=== PATIENT | female | born 1995 | race Two or more races ===

== ENCOUNTER 2020-09-06 15:20 | Outpatient (REF) | payer OTHER, SELFPAY | END 2020-09-06 15:21 | disposition home or self-care (01) | LOC: HO.LAB 15:20 | PROVIDERS: Visit Provider Internal Medicine | DX: Z20.828 Contact with and (suspected) exposure to other viral communicable diseases (principal) | CPT/HCPCS: C9803; U0003 ==

== ENCOUNTER 2021-06-18 16:04 | Emergency (ER) | payer OTHER, SELFPAY ==
--- NOTE | 2021-06-18 | ECG_ITS ---
Test Reason : CHEST PAIN Blood Pressure : / mmHG Vent. Rate : 087 BPM Atrial Rate : 087 BPM P-R Int : 120 ms QRS Dur : 086 ms QT Int : 362 ms P-R-T Axes : 026 009 033 degrees QTc Int : 435 ms Normal sinus rhythm Normal ECG When compared with ECG of 04-JAN-2020 20:48, No significant change was found Referred By: Generic ED Physician Electronically Signed By:LUIS ARMANDO HO
--- NOTE | ~2021-06-18 | XR_ITS ---
EXAMINATION: XR CHEST CLINICAL INFORMATION: Right-sided chest pain COMPARISON: None TECHNIQUE: 2 views of the chest were obtained. FINDINGS: No significant abnormality is noted involving the heart, lungs, mediastinum, bony thorax or soft tissues. XR/XR chest 2V IMPRESSION: Unremarkable examination.
[2021-06-18 16:59] VITALS: BP 111/43; PULSE 96; RESP 16; TEMP 36.6; O2SAT 98; BMI 27.3
--- NOTE | 2021-06-18 17:00 | ED_ITS ---
HPI - Chest Pain General Chief Complaint: Chest Pain Stated Complaint: chest pain x3days Time Seen by Provider: 06/18/21 16:59 Related Data Allergies Allergy/AdvReac Type Severity Reaction Status Date / Time No Known Allergies Allergy Unverified 06/22/20 19:02 [No Known Allergies*] [facility] Past Medical History Medical History (Updated 06/19/21 @ 18:58 by DIANA Lewis) Asthma Social History Social History Advance Directives: No Advance Directives Information Provided: No Physical Exam Vital Signs: Vital Signs: Last Vital Signs Temp 98 F 06/18/21 16:59 Pulse 96 06/18/21 16:59 Resp 16 06/18/21 16:59 BP 111/43 L 06/18/21 16:59 Pulse Ox 98 06/18/21 16:59 Body Mass Index 27.3 Course Course Course Narrative: 17pm - 25-year-old female presenting to the ED with complaints of left-sided chest pain for the past 2-3 days that is intermittent in nature that she reports is sharp. Does not radiate. Is currently on the Nexplanon control. Denies drug usage. On exam patient is alert oriented x3. Not in any acute distress. Vital signs are stable within normal limits. CV RRR. Lungs CTA. Patient does have chest wall reproducible tenderness. Labs, chest x-ray an EKG ordered at this time. Patient will be sent back to the waiting room for further evaluation treatment into the main ED. Discharge Plan Discharge Clinical Impression: Chest pain Patient Disposition: Elopement Interventions: LWBS Worksheet Last Done: 06/18/21 20:51 Discharge Date/Time: 06/18/21 20:32
== END 2021-06-18 20:32 | disposition left against medical advice (07) ==
PROVIDERS: Emergency Provider Emergency Medicine
DX: R07.9 Chest pain, unspecified (principal)
CPT/HCPCS: 71046; 93005; 99283

== ENCOUNTER 2021-06-20 08:50 | Emergency (ER) | payer OTHER, SELFPAY ==
--- NOTE | ~2021-06-20 | CT_ITS ---
EXAMINATION: CT ANGIOGRAM OF THE CHEST WITH AND WITHOUT CONTRAST (CT PULMONARY ANGIOGRAM FOR PE) CLINICAL INFORMATION: Reason for Exam L sided pain elevated ddimer COMPARISON: None TECHNIQUE: Prior to contrast administration, noncontrast localization images were obtained. Subsequently, multidetector volumetric imaging was performed from the thoracic inlet to below the diaphragms following the administration of 80 mL Omnipaque 350 intravenous contrast. No contrast reaction reported Sagittal, coronal, and MIP oblique sagittal reformatted images were obtained on the CT workstation, uploaded to PACS, and reviewed. This CT examination was performed using dose optimization techniques as appropriate, variously including the following: *Automated exposure control *Adjustment of mA and/or kV according to patient size (this includes techniques or standardized protocols for targeted exams where dose is matched to indication/reason for exam; i.e. extremities or head) *Use of iterative reconstruction technique Total exam dose-length product 100 mGy-cm FINDINGS: QUALITY OF STUDY/CONTRAST BOLUS: Suboptimal. PULMONARY ARTERIES: The contrast optimization in pulmonary artery is suboptimal. Due to contrast leak at the IV connection. Cannot exclude PE. THORACIC AORTA: No aneurysm or dissection. LUNG: No focal consolidation, nodules or masses. PLEURA: No pleural effusion or pneumothorax. MEDIASTINUM: Normal heart size. No pericardial effusion. No hilar or mediastinal lymphadenopathy. No evidence of septal bowing or right heart strain. CHEST WALL/AXILLA: No axillary or internal mammary lymphadenopathy. OSSEOUS STRUCTURES: No acute or suspicious osseous abnormality. UPPER ABDOMEN: Visualized liver, spleen, pancreas and bilateral adrenal glands are unremarkable. No reflux of contrast into the hepatic veins to suggest elevated right heart pressures. CT/CT angio chest PE protocol IMPRESSION: Suboptimal contrast opacifying pulmonary artery. Cannot exclude PE. Recommend repeat exam or VQ study. Rest of the CT chest is unremarkable VTE: indeterminate. Results were called by phone to Dr. Daisy Perez in the ER of an inadequate PE study at 12:22 PM
--- NOTE | ~2021-06-20 | NM_ITS ---
EXAMINATION: NM LUNG IMAGE PERFUSION CLINICAL INFORMATION: Elevated D-dimer. Evaluate for PE. Suboptimal CTA chest. COMPARISON: CTA chest 06/20/2021 and chest x-ray 06/18/2021. TECHNIQUE: Following intravenous administration of 4 mCi of 99m technetium MAA in the right antecubital vein, imaging of both lungs were obtained in multiple projections. FINDINGS: On perfusion exam, there is non-segmental defects in left lower lobe, suspicious. The chest x-ray is completely normal. No abnormality seen on CTA chest in the lung parenchyma. There are non-segmental vertical linear defects, likely prominent fissures. Patient has a history of asthma. NM/NM pul perfusion IMPRESSION: Small subsegmental defects left lower lobe; findings are suspicious for intermediate probability for PE. There are non-segmental defects along the major fissure of both lungs. These findings could be secondary to a known history of asthma; however, there is no hyperinflation seen on the chest x-ray from 06/18/2021 or the CTA chest from 06/20/2021.
--- NOTE | ~2021-06-20 | CT_ITS ---
EXAMINATION: CT ANGIOGRAM OF THE CHEST WITH AND WITHOUT CONTRAST (CT PULMONARY ANGIOGRAM FOR PE) CLINICAL INFORMATION: Reason for Exam please re scan for PE left-sided pain. Elevated d-dimer. COMPARISON: Previous chest x-ray 06/18/2021 and CTA of the chest and nuclear medicine perfusion exam from earlier the same day TECHNIQUE: Prior to contrast administration, noncontrast localization images were obtained. Subsequently, multidetector volumetric imaging was performed from the thoracic inlet to below the diaphragms following the administration of 61 mL Omnipaque 350 intravenous contrast. No contrast reaction reported Sagittal, coronal, and MIP oblique sagittal reformatted images were obtained on the CT workstation, uploaded to PACS, and reviewed. This CT examination was performed using dose optimization techniques as appropriate, variously including the following: *Automated exposure control *Adjustment of mA and/or kV according to patient size (this includes techniques or standardized protocols for targeted exams where dose is matched to indication/reason for exam; i.e. extremities or head) *Use of iterative reconstruction technique Total exam dose-length product 242 mGy-cm FINDINGS: QUALITY OF STUDY/CONTRAST BOLUS: Satisfactory. PULMONARY ARTERIES: No central or segmental pulmonary emboli. THORACIC AORTA: No aneurysm or dissection. LUNG: No focal consolidation, nodules or masses. PLEURA: No pleural effusion or pneumothorax. MEDIASTINUM: Normal heart size. No pericardial effusion. No hilar or mediastinal lymphadenopathy. No evidence of septal bowing or right heart strain. CHEST WALL/AXILLA: No axillary or internal mammary lymphadenopathy. OSSEOUS STRUCTURES: No acute or suspicious osseous abnormality. UPPER ABDOMEN: Unremarkable. No reflux of contrast into the hepatic veins to suggest elevated right heart pressures. CT/CT angio chest PE protocol IMPRESSION: Normal exam. No evidence of pulmonary embolism. VTE: negative
[2021-06-20 09:18] VITALS: BP 133/60; PULSE 85; RESP 14; TEMP 36.4; O2SAT 99; BMI 27.3
--- NOTE | 2021-06-20 10:06 | ED.CHESTPAIN ---
HPI - Chest Pain General Chief Complaint: Chest Pain Stated Complaint: chest pain when swallowing Time Seen by Provider: 06/20/21 09:58 Source: patient Mode of arrival: ambulatory Limitations: no limitations History of Present Illness MD complaint: chest pain Onset (ago): day(s) (4) Timing of current episode: episodic Prior episodes: Yes Onset: during rest, during exertion and after eating Pain location: left chest Pain radiation: none Severity: moderate Quality: sharp Relieving factors: nothing Exacerbating factors: exertion, inspiration and eating Associated symptoms: dyspnea Treatment prior to arrival: none Related Data Allergies Allergy/AdvReac Type Severity Reaction Status Date / Time No Known Allergies Allergy Unverified 06/22/20 19:02 [No Known Allergies*] Review of Systems Review of Systems: Constitutional : No Weight loss, No Fever, No Chills ENT/Mouth : No sore throat, No Rhinorrhea Eyes: No Eye Pain, No Swelling Cardiovascular : pos Chest Pain, pos SOB, no Dyspnea on Exertion, No Orthopnea, No Edema, No Palpitations Respiratory : No Cough, No Sputum Gastrointestinal : no Nausea, No Vomiting, No Diarrhea, No abdominal Pain, No Hematochezia, No Melena Genitourinary : No Dysuria, No Urinary Frequency Musculoskeletal : No joint pain, No Myalgias, No Joint Swelling Skin : No Skin Lesions, No rash Neuro : No Weakness, No Numbness, No Dizziness, No Headache Psych : No Anxiety/Panic, No Depression Heme/Lymph: No Bruising, No Lymphadenopathy Endocrine : No Polyuria, No Polydipsia All other systems reviewed and are negative [facility] Past Medical History Medical History Asthma Social History Social History (Updated 06/20/21 @ 10:23 by Daisy Perez DO) Patient Tobacco Use Status: Never used Tobacco Use of substances other than those prescribed or required for medical reasons: No Advance Directives: No Advance Directives Information Provided: No Patient : No Physical Exam Vital Signs: Vital Signs: Last Vital Signs Temp 97.5 F 06/20/21 09:18 Pulse 85 06/20/21 09:18 Resp 14 06/20/21 09:18 BP 133/60 06/20/21 09:18 Pulse Ox 99 06/20/21 09:18 Body Mass Index 27.3 Appearance: Alert. Oriented X3. No acute distress. Eyes: Pupils equal, round and reactive to light. ENT: Pharynx normal. Neck: Normal inspection. Neck supple. CVS: Normal heart rate and rhythm. Pulses normal. Respiratory: No respiratory distress. Breath sounds normal. Abdomen: Soft and non-tender. Skin: Skin warm and dry. Normal skin color. Normal skin turgor. Extremities: No lower extremity edema. No calf ttp Neuro: Oriented X 3. No motor deficit. No sensory deficit. Course Course Course Narrative: ddimer elevated CTA ordered VQ scan possible PE - intermediate this seems highly unlikely given her VS I did discuss options with the patient in regards to starting blood thinners or obtaining CTA to definitively dx and the patient wants to proceed with CTA before she start on on thinners which is reasonable as we would be subjecting her to OAC for 6 months and that is not without risk negative for PE on CTA which seems consistent with her clinical presentation MDM - Chest Pain MDM Narrative Medical decision making narrative: 25 yo female with no sig PMH here with L sided pleuritic chest pain worse with exerton x 4 days. She has no ACS risk factors, was vaccinated over 2 months ago, does have nexplanon - at this time EKG, CXR normal 2 days ago with symptoms, troponin x 1, ddimer dispo per results and findings. Lab Data Result diagrams: 06/20/21 10:34 06/20/21 10:34 Labs: Lab Results 06/20/21 06/20/21 06/20/21 Range/Units 10:34 10:34 10:34 WBC 8.6 (4.8-10.8) X10*3/uL RBC 4.93 (4.20-5.50) X10*6/uL Hgb 14.5 (12.0-16.0) g/dl Hct 42.5 (37-47) % MCV 86.2 (80-98) fL MCH 29.4 (27.0-33.0) pg MCHC 34.1 (31.0-35.0) g/dl RDW 13.2 (11.0-16.0) % Plt Count 245 (160-400) X10*3/uL MPV 9.7 (9.4-12.3) fL Immature Gran % (Auto) 0.2 (0.0-0.4) % Neut % (Auto) 67.1 (45-73) % Lymph % (Auto) 17.7 L (20-40) % Crockett % (Auto) 6.7 (2-11) % Eos % (Auto) 7.4 H (0-4) % Baso % (Auto) 0.9 (0-2) % Lymph # (Auto) 1.5 (1.2-4.9) X10*3/uL Crockett # (Auto) 0.6 (0.1-1.2) X10*3/uL Eos # (Auto) 0.6 H (0.0-0.4) X10*3/uL Baso # (Auto) 0.1 (0.0-0.2) X10*3/uL Abs Immat Gran (auto) 0.02 (0.00-0.03) X10*3/uL Absolute Neuts (auto) 5.8 (2.0-8.3) X10*3/uL Absolute Nucleated RBC 0.000 (0.0-0.012) X10*3/uL Nucleated RBC % (auto) 0.0 (0.0-0.2) /100WBC PT 11.9 (9.9-13.0) SEC INR 1.0 (0.9-1.1) APTT 32.3 (24.1-38.0) SEC D-Dimer 346 NG/ML Sodium 138 (135-145) mmol/L Potassium 4.1 (3.3-5.1) mmol/L Chloride 106 (96-108) mmol/L Carbon Dioxide 26 (22-29) mmol/L Anion Gap 10 L (12-20) BUN 10 (9-16) mg/dL Creatinine 0.79 (0.5-1.4) mg/dL Estim Creat Clear Calc 95.3 Estimated GFR > 60 Random Glucose 84 (60-115) mg/dL Calcium 9.4 (8.4-10.2) mg/dL Total Bilirubin 1.5 H (0.0-1.0) mg/dL Direct Bilirubin 0.5 (0.0-0.5) mg/dL AST 16 (5-31) U/L ALT 14 (0-31) U/L Alkaline Phosphatase 82 (39-117) U/L Troponin I High Sens (<3.5-17.0) ng/L Total Protein 7.3 (6.5-8.0) g/dL Albumin 4.2 (3.5-5.0) g/dL Lipase 30 (8-78) U/L Urine Test (NEGATIVE) COVID-19 ([facility]) (Negative) COVID-19 Clin Com 06/20/21 06/20/21 06/20/21 Range/Units 10:34 10:50 11:13 WBC (4.8-10.8) X10*3/uL RBC (4.20-5.50) X10*6/uL Hgb (12.0-16.0) g/dl Hct (37-47) % MCV (80-98) fL MCH (27.0-33.0) pg MCHC (31.0-35.0) g/dl RDW (11.0-16.0) % Plt Count (160-400) X10*3/uL MPV (9.4-12.3) fL Immature Gran % (Auto) (0.0-0.4) % Neut % (Auto) (45-73) % Lymph % (Auto) (20-40) % Crockett % (Auto) (2-11) % Eos % (Auto) (0-4) % Baso % (Auto) (0-2) % Lymph # (Auto) (1.2-4.9) X10*3/uL Crockett # (Auto) (0.1-1.2) X10*3/uL Eos # (Auto) (0.0-0.4) X10*3/uL Baso # (Auto) (0.0-0.2) X10*3/uL Abs Immat Gran (auto) (0.00-0.03) X10*3/uL Absolute Neuts (auto) (2.0-8.3) X10*3/uL Absolute Nucleated RBC (0.0-0.012) X10*3/uL Nucleated RBC % (auto) (0.0-0.2) /100WBC PT (9.9-13.0) SEC INR (0.9-1.1) APTT (24.1-38.0) SEC D-Dimer NG/ML Sodium (135-145) mmol/L Potassium (3.3-5.1) mmol/L Chloride (96-108) mmol/L Carbon Dioxide (22-29) mmol/L Anion Gap (12-20) BUN (9-16) mg/dL Creatinine (0.5-1.4) mg/dL Estim Creat Clear Calc Estimated GFR Random Glucose (60-115) mg/dL Calcium (8.4-10.2) mg/dL Total Bilirubin (0.0-1.0) mg/dL Direct Bilirubin (0.0-0.5) mg/dL AST (5-31) U/L ALT (0-31) U/L Alkaline Phosphatase (39-117) U/L Troponin I High Sens < 3.5 (<3.5-17.0) ng/L Total Protein (6.5-8.0) g/dL Albumin (3.5-5.0) g/dL Lipase (8-78) U/L Urine Test NEGATIVE (NEGATIVE) COVID-19 ([facility]) Negative (Negative) COVID-19 Clin Com See Note ECG Data ECG #1: Attestation: I personally reviewed and interpreted this ECG as follows: ECG interpretation date: 06/20/21 ECG interpretation time: 10:27 Interpretation: Rate: 71 Rhythm: NSR Galva: left Normal P waves. Normal JAE. Normal QRS complex. ST T wave : no MERI qTC: normal prior studies: no acute ischemia The study has been interpreted contemporaneously by me. . Discharge Plan Discharge Clinical Impression: Chest pain Qualifiers: Chest pain type: pleurodynia Qualified Code(s): R07.81 - Pleurodynia Patient Disposition: Home, Self-Care Instructions: Chest Pain (ED) Additional Instructions: return to ED for any worsening symptoms or concerns Referrals: Physician,Unknown [Primary Care Provider] - 2 days (if not better) Stand Alone Forms: Work/School Release
--- NOTE | 2021-06-20 10:19 | ECG_ITS ---
Test Reason : CHEST PAIN Blood Pressure : / mmHG Vent. Rate : 071 BPM Atrial Rate : 071 BPM P-R Int : 132 ms QRS Dur : 086 ms QT Int : 400 ms P-R-T Axes : 028 006 024 degrees QTc Int : 434 ms Normal sinus rhythm Low voltage QRS Borderline ECG When compared with ECG of 18-JUN-2021 16:25, No significant change was found Referred By: Daisy Perez Electronically Signed By:LUIS ARMANDO HO
[2021-06-20 10:41] LABS: MANUAL DIFF FLAG NO
[2021-06-20 10:43] LABS: Basophils Absolute Auto 0.1 X10*3/uL (0.0-0.2); Basophils Percent Auto 0.9 % (0-2); Eosinophils Absolute Auto 0.6 X10*3/uL (0.0-0.4); Eosinophils Percent Auto 7.4 % (0-4); Hematocrit 42.5 % (37-47); Hemoglobin 14.5 g/dl (12.0-16.0); Imm Gran Abs Auto 0.02 X10*3/uL (0.00-0.03); Imm Gran Pct Auto 0.2 % (0.0-0.4); Lymphocytes Absolute Auto 1.5 X10*3/uL (1.2-4.9); Lymphocytes Percent Auto 17.7 % (20-40); Mean Corpuscular HGB Conc 34.1 g/dl (31.0-35.0); Mean Corpuscular Hemoglobin 29.4 pg (27.0-33.0); Mean Corpuscular Volume 86.2 fL (80-98); Mean Platelet Volume 9.7 fL (9.4-12.3); Monocytes Absolute Auto 0.6 X10*3/uL (0.1-1.2); Monocytes Percent Auto 6.7 % (2-11); Neutrophils Absolute Auto 5.8 X10*3/uL (2.0-8.3); Neutrophils Percent Auto 67.1 % (45-73); Platelet Count 245 X10*3/uL (160-400); Red Blood Count 4.93 X10*6/uL (4.20-5.50); Red Cell Distribution Width 13.2 % (11.0-16.0); White Blood Count 8.6 X10*3/uL (4.8-10.8)
[2021-06-20 10:54] LABS: D Dimer 346 NG/ML
[2021-06-20 10:58] LABS: Alanine Aminotransferase 14 U/L (0-31); Albumin Level 4.2 g/dL (3.5-5.0); Alkaline Phosphatase 82 U/L (39-117); Anion Gap 10 (12-20); Aspartate Amino Transferase 16 U/L (5-31); Bilirubin Direct 0.5 mg/dL (0.0-0.5); Bilirubin Total 1.5 mg/dL (0.0-1.0); Blood Urea Nitrogen 10 mg/dL (9-16); Calcium 9.4 mg/dL (8.4-10.2); Carbon Dioxide 26 mmol/L (22-29); Chloride 106 mmol/L (96-108); Creatinine Clr Calc Pharmacy 95.3; Estimated Glomerular Filt Rate > 60; Glucose Random 84 mg/dL (60-115); Lipase 30 U/L (8-78); Potassium 4.1 mmol/L (3.3-5.1); Sodium 138 mmol/L (135-145); Total Protein 7.3 g/dL (6.5-8.0)
[2021-06-20 11:03] LABS: Troponin-I High Sensitivity < 3.5 ng/L (<3.5-17.0)
[2021-06-20 11:19] LABS: COVID-19 Test Negative (Negative); IDNOW Serial# 9DD0AD1C
[2021-06-20 11:28] LABS: UPreg QC Valid YES; Urine Pregnancy NEGATIVE (NEGATIVE)
[2021-06-20] MEDS: iohexoL 350 MG/ML 100 ML INFUS..BTL IV ×2 (12:08→15:51)
[2021-06-20 15:34] LABS: Prothrombin Time 11.9 SEC (9.9-13.0)
[2021-06-20 15:37] LABS: Partial Thromboplastin Time 32.3 SEC (24.1-38.0)
[2021-06-20] MEDS: 0.9 % Sodium Chloride 1,000 ML 999 ML IVCONT (15:38)
== END 2021-06-20 17:09 | disposition home or self-care (01) ==
PROVIDERS: Emergency Provider Emergency Medicine
DX: R07.81 Pleurodynia (principal); R07.9 Chest pain, unspecified; R06.02 Shortness of breath; Z20.822 Contact with and (suspected) exposure to COVID-19
CPT/HCPCS: 36415; 71275; 78580; 80048; 80076; 81025; 83690; 84484; 85025; 85379; 85610; 85730; 87635; 93005; 96360; 99283; 99285; A9540; Q9967

== ENCOUNTER 2023-04-05 01:53 | Emergency (ER) | payer OTHER, SELFPAY ==
--- NOTE | ~2023-04-05 | XR_ITS ---
EXAMINATION: XR CHEST CLINICAL INFORMATION: Asthma, EtOH, rule out aspiration COMPARISON: 06/20/2021 TECHNIQUE: Frontal view of the chest was obtained. FINDINGS: Lung volumes are symmetric. No focal consolidation is seen. No evidence of pneumothorax, pleural effusion, or pulmonary edema. The cardiomediastinal contour is unremarkable. No acute osseous findings are seen. XR/XR chest 1V IMPRESSION: No acute cardiopulmonary findings.
[2023-04-05 01:58] VITALS: BP 129/69; PULSE 123; RESP 26; O2SAT 99; BMI 25.9
--- NOTE | 2023-04-05 02:09 | ED.ASTHMA ---
HPI - Asthma General Chief Complaint: Asthma Stated Complaint: ASTHMA ATTACK Time Seen by Provider: 04/05/23 01:59 Source: EMS Mode of arrival: EMS Limitations: other (Intoxicated, shortness of breath) History of Present Illness HPI Narrative: Patient comes to the emergency room via ambulance from home. Patient was found in the bathtub of her house intoxicated, vomiting and having diarrhea and also having an asthma exacerbation. According to the ambulance, patient's oxygen saturation was 85% on room air, patient was given O2 prior to arrival. Oxygen saturation improved to the low 90s. Patient admits that she has been heavily drinking today. Related Data Previous Rx's Medication Instructions Recorded prednisone 50 mg tablet 50 mg PO DAILY #4 tabs 04/05/23 Allergies Allergy/AdvReac Type Severity Reaction Status Date / Time No Known Allergies Allergy Verified 04/05/23 02:04 [No Known Allergies*] Review of Systems Review of Systems: Constitutional : No Weight loss, No Fever, No Chills, No Night Sweats, No Fatigue, No Malaise ENT/Mouth : No Hearing loss, No Ear Pain, No Nasal Congestion, No Sinus Pain, No Hoarseness, No sore throat, No Rhinorrhea, No Swallowing Difficulty Eyes: No Eye Pain, No Swelling, No Redness, No Foreign Body, No Discharge, No Vision Changes Cardiovascular : No Chest Pain, No SOB, No Dyspnea on Exertion, No Orthopnea, No Edema, No Palpitations Respiratory : No Cough, No Sputum, No Wheezing, No Smoke Exposure, No Dyspnea Gastrointestinal : No Nausea, No Vomiting, No Diarrhea, No Constipation, No abdominal Pain, No Hematochezia, No Melena Genitourinary : no irregular bleeding, No Dysuria, No Urinary Frequency, No Hematuria, No Urinary Incontinence, No Urgency, No Flank Pain, No Urinary Flow Changes, No Hesitancy Musculoskeletal : No joint pain, No Myalgias, No Joint Swelling Skin : No Skin Lesions, No rash Neuro : No Weakness, No Numbness, No Paresthesias, No Loss of Consciousness, No Dizziness, No Headache Psych : No Anxiety/Panic, No Depression, No SI/HI/AH/VH, No Social Issues, Heme/Lymph: No Bruising, No Bleeding,No Lymphadenopathy Endocrine : No Polyuria, No Polydipsia, No Temperature Intolerance [facility] Past Medical History Medical History Asthma Social History Social History (Updated 06/20/21 @ 10:23 by Breanne Perez DO) Alcohol intake: current Alcohol intake frequency: a few times a week Alcohol type: hard liquor Patient Tobacco Use Status: Never used Tobacco Smoked in Last 30 Days: No Use of substances other than those prescribed or required for medical reasons: Yes Substance Use Type: Marijuana Substance Use Frequency: Occasionally Advance Directives: No Advance Directives Information Provided: Yes Patient : No Physical Exam Vital Signs: Vital Signs: Last Vital Signs Temp 97.5 F 04/05/23 04:30 Pulse 140 H 04/05/23 04:30 Resp 23 H 04/05/23 04:30 BP 107/46 L 04/05/23 04:30 Pulse Ox 99 04/05/23 04:30 O2 Del Method Aerosol Mask 04/05/23 04:30 O2 Flow Rate 5 04/05/23 04:30 Oxygen Flow Rate 10 04/05/23 01:58 BMI result Body Mass Index 25.9 Const: Other: Appearance: Alert. Oriented X3. No acute distress. Eyes: Pupils equal, round and reactive to light. ENT: Pharynx normal. Neck: Normal inspection. Neck supple. No lymph nodes noted. No crepitus CVS: Normal heart rate and rhythm. Pulses normal. Normal S1 and S2 Respiratory: Patient having difficulty breathing, on a non-rebreather saturating in the low 90s. Patient wheezing bilaterally, decreased air movement. Abdomen: Soft and nontender. No rigidity. No distention. Skin: Skin warm and dry. Normal skin color. Normal skin turgor. Extremities: No lower extremity edema. No Lacerations. No Rash Neuro: Oriented X 3. No motor deficit. No sensory deficit. Moving all extremities. No slurred speech. CN 2 through 12 grossly intact Psych: calm, cooperative, Course Course Course Narrative: -patient getting Solu-Medrol, magnesium, albuterol neb treatment, IV Zofran -patient is waking up, converse aiding, coherent. Medications Administered Discontinued Medications Generic Name Dose Route Start Last Admin Trade Name Freq PRN Reason Stop Dose Admin Albuterol Sulfate 10 mg 04/05/23 01:57 04/05/23 02:15 Albuterol Sulfate (0.083%) 2.5 Mg/3 Ml Vial.Neb INHALE 04/05/23 01:58 10 mg ONCE ONE Administration Albuterol Sulfate 10 mg 04/05/23 01:57 04/05/23 02:15 Albuterol Sulfate (0.083%) 2.5 Mg/3 Ml Vial.Neb INHALE 04/05/23 01:58 Not Given ONCE ONE Albuterol Sulfate 10 mg 04/05/23 03:32 04/05/23 03:35 Albuterol Sulfate (0.083%) 2.5 Mg/3 Ml Vial.Neb INHALE 04/05/23 03:33 10 mg ONCE ONE Administration Magnesium Sulfate 2 gm in 50 mls @ 150 mls/hr 04/05/23 01:57 04/05/23 02:40 Magnesium Sulfate/H2o IV 04/05/23 02:16 Infused ONCE ONE Infusion Methylprednisolone Sodium Succinate 125 mg 04/05/23 01:57 04/05/23 02:10 Methylprednisolone Sod Succ 125 Mg/2 Ml Vial IVPUSH 04/05/23 01:58 125 mg ONCE ONE Administration Ondansetron HCl 4 mg 04/05/23 02:10 04/05/23 02:13 Ondansetron Hcl 4 Mg/2 Ml Vial IVPUSH 04/05/23 02:11 4 mg ONCE ONE Administration Medical Decision Making Medical Decision Making MDM Narrative: -patient's oxygen saturation 85%, having an asthma exacerbation, admission being considered -of patient's labs pending -patient currently getting nebulization treatments. -patient is awake, alert and oriented x3, ambulatory without assistance. Clinically sober -patient was ambulated around the emergency room, oxygen saturation 97% the whole time. -on auscultation, lungs are clear, good air movement -patient states she has all of her medications at home, only needs prednisone. Differential Diagnosis Differential Diagnoses: The differential diagnosis associated with the presentation includes (Alcohol intoxication, asthma exacerbation, aspiration pneumonia) Admission/Observation Consideration of admission/observation: Escalation of care including admission/observation considered Lab Data [facility] Lab Attestation statement: I reviewed the patient's lab results. 04/05/23 02:17 04/05/23 02:17 Labs: Lab Results 04/05/23 04/05/23 04/05/23 Range/Units 02:17 02:17 02:17 WBC 12.4 H (4.8-10.8) X10*3/uL RBC 4.62 (4.20-5.50) X10*6/uL Hgb 13.1 (12.0-16.0) g/dl Hct 38.9 (37.0-47.0) % MCV 84.2 (80.0-98.0) fL MCH 28.4 (27.0-33.0) pg MCHC 33.7 (31.0-35.0) g/dl RDW 12.6 (11.0-16.0) % Plt Count 290 (160-400) X10*3/uL MPV 9.5 (9.4-12.3) fL Immature Gran % (Auto) 0.8 H (0.0-0.4) % Neut % (Auto) 60.5 (45-73) % Lymph % (Auto) 23.8 (20-40) % Donley % (Auto) 6.9 (2-11) % Eos % (Auto) 7.0 H (0-4) % Baso % (Auto) 1.0 (0-2) % Lymph # (Auto) 3.0 (1.2-4.9) X10*3/uL Donley # (Auto) 0.9 (0.1-1.2) X10*3/uL Eos # (Auto) 0.9 H (0.0-0.4) X10*3/uL Baso # (Auto) 0.1 (0.0-0.2) X10*3/uL Abs Immat Gran (auto) 0.10 H (0.00-0.03) X10*3/uL Absolute Neuts (auto) 7.5 (2.0-8.3) x10*3/uL Absolute Nucleated RBC 0.000 (0.0-0.012) X10*3/uL Nucleated RBC % (auto) 0.0 (0.0-0.2) /100WBC Sodium 143 (135-145) mmol/L Potassium 3.8 (3.3-5.1) mmol/L Chloride 109 H (96-108) mmol/L Carbon Dioxide 25 (22-29) mmol/L Anion Gap 13 (12-20) BUN 7 L (9-16) mg/dL Creatinine 0.81 (0.5-1.4) mg/dL Estim Creat Clear Calc 107.4 Estimated GFR > 60 Random Glucose 118 H (60-115) mg/dL Calcium 8.6 D (8.4-10.2) mg/dL Total Bilirubin 0.3 (0.0-1.0) mg/dL AST 16 (5-31) U/L ALT 17 (0-31) U/L Alkaline Phosphatase 66 (39-117) U/L Total Protein 7.3 (6.5-8.0) g/dL Albumin 3.8 (3.5-5.0) g/dL Ethyl Alcohol 134 mg/dL Critical Care Time Critical Care Time Critical Care Time: Yes Total Critical Care Time: 60 Attestation: I have personally provided critical care time. Time includes review of lab data, radiology results, discussion with consultants, and monitoring for potential decompensation. Intervention performed as documented. Discharge Plan Discharge Clinical Impression: Asthma with acute exacerbation, Alcohol intoxication Patient Disposition: Home, Self-Care Instructions: Asthma (ED), Alcohol Intoxication (ED) Additional Instructions: Please follow-up with your primary care physician tomorrow. If you have any worsening or new symptoms, please return to the emergency room or call 911 Prescriptions: New prednisone 50 mg tablet 50 mg PO DAILY Qty: 4 0RF
[2023-04-05] MEDS: methylPREDNISolone Sod Succ 125 MG/2 ML VIAL IVPUSH (02:10)
[2023-04-05] MEDS: Magnesium Sulfate/H2O 2 GM/50 ML PIGGYBACK IV (02:10)
[2023-04-05] MEDS: ondansetron HCL 4 MG/2 ML VIAL IVPUSH (02:13)
[2023-04-05 02:15] VITALS: PULSE 126; RESP 26; O2SAT 99
[2023-04-05] MEDS: Albuterol Sulfate (0.083%) 2.5 MG/3 ML VIAL.NEB 10 MG INHALE ×2 (02:15→03:35)
[2023-04-05 02:25] VITALS: BP 129/69; PULSE 123; RESP 24; TEMP 36.6; O2SAT 100
--- NOTE | 2023-04-05 03:16 | MHC.EDTECH ---
Late entry at 0200 this tech changed pt over to hospital attire, placed patient on brand manager,vitals taken and labs obtained. Had to cut pts shirt off and patient had us throw away her pants due to being solid.Patient had a moderate amount of liq. stool patient was cleaned and made comfortable. Patient has no belongings at this time. RN aware
[2023-04-05 03:38] VITALS: PULSE 119; RESP 16; O2SAT 95
[2023-04-05 04:30] VITALS: BP 107/46; PULSE 140; RESP 23; TEMP 36.4; O2SAT 99
--- NOTE | 2023-04-05 05:13 | MHC.EDTECH ---
Walked patient around the main ED per Doctor. Rm Air before walking 96%. When rounding the ED patient had no complaint of Lightheaded, dizziness, or SOB. O2 stayed at 97%, she had no complaints. Stated I feel good . Brought her back to her rm. Still no Complaints. RN, aware
== END 2023-04-05 05:55 | disposition home or self-care (01) ==
PROVIDERS: Emergency Provider Emergency Medicine
DX: J45.901 Unspecified asthma with (acute) exacerbation (principal); F10.920 Alcohol use, unspecified with intoxication, uncomplicated; Y90.6 Blood alcohol level of 120-199 mg/100 ml; F12.90 Cannabis use, unspecified, uncomplicated
CPT/HCPCS: 36415; 71045; 80053; 80307; 85025; 94640; 96365; 96375; 99284; 99285; J2405; J2930; J3475

== ENCOUNTER 2023-08-12 10:43 | Emergency (ER) | payer OTHER, SELFPAY ==
[2023-08-12 10:54] VITALS: BP 106/64; PULSE 75; RESP 16; TEMP 36.6; O2SAT 98; BMI 29.3
--- NOTE | 2023-08-12 13:20 | ED.GENADULT ---
HPI - General Adult General Chief complaint: General Medical Stated complaint: Needle stick-work inj Time Seen by Provider: 08/12/23 10:59 Source: patient and RN notes reviewed Mode of arrival: ambulatory Limitations: no limitations History of Present Illness HPI narrative: This is a 28-year-old female presenting to the emergency department after being stuck by a dirty needle at work today. Patient states that a needle fell out of the sharps container and accidentally punctured her right 2nd finger. She immediately will rinse the area. 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 She is unsure when her last tetanus was. No other complaints or concerns at this time. MD complaint: Needlestick Onset (ago): hour(s) Radiation: non-radiation Quality: aching Pain Consistency: constant Relieving factors: none Exacerbating factors: none Associated symptoms: denies other symptoms Treatments prior to arrival: none Related Data Previous Rx's Medication Instructions Recorded prednisone 50 mg tablet 50 mg PO DAILY #4 tabs 04/05/23 Allergies Allergy/AdvReac Type Severity Reaction Status Date / Time No Known Allergies Allergy Verified 08/12/23 10:54 [No Known Allergies*] Review of Systems Review of Systems: Yes all other systems are reviewed and are negative PMFSH Past Medical History Attestation statement: The following information was validated with the patient. Medical History Asthma Social History Social History Alcohol intake: current Alcohol intake frequency: a few times a week Alcohol type: hard liquor Patient Tobacco Use Status: Never used Tobacco Substance Use Type: Marijuana Advance Directives: No Physical Exam ED Vital Signs: Vital Signs - 24 hr 08/12/23 10:54 Temperature 98 F Pulse Rate 75 Respiratory Rate 16 Blood Pressure 106/64 Pulse Oximetry 98 BMI result Body Mass Index 29.3 Const Other: General: Awake, alert, and oriented X3. No acute distress. HEENT: Normal inspection CVS: Normal heart rate and rhythm. Pulses normal. Respiratory: No respiratory distress Skin: Warm, dry, no rashes noted to exposed skin. Normal skin color. Normal skin turgor. Extremities: Right second digit with small puncture noted over the PIP. No surrounding erythema or edema noted. Full ROM of the digit without difficulty. Neuro: Oriented X 3. No motor deficit. No sensory deficit. Medical Decision Making Medical Decision Making MDM Narrative: 28-year-old female presenting to the emergency department after needle stick. Needle was dirty however patient reports that she is aware of past medical history of both patient's, states no HIV or hepatitis. She is unsure when her tetanus was. Tiny puncture wound noted at the PIP, full range of motion of the 2nd digit, no surrounding erythema or edema. Discussed wrist versus benefits of starting antiviral treatment, patient declines wanting treatment at this time. Will draw basic labs, HIV and hepatitis panel. Advised to keep wound clean and dry and to return with any new or worsening symptoms. Differential Diagnosis Differential Diagnoses: The differential diagnosis associated with the presentation includes Puncture, cellulitis, bodily fluid exposure, abrasion, laceration Discharge Plan Discharge Clinical Impression: Accidental needlestick injury with exposure to body fluid Patient Disposition: Home, Self-Care Instructions: Needle Stick Injuries (ED) Additional Instructions: You were seen in the ER after being stuck by a needle. You had labs performed in the ER. We will call you with any abnormal results. You declined treatment with antivirals today. Keep area clean and dry. We gave you your tetanus shot today. I am giving you a referral to an infectious disease specialist if you would like to follow-up with them. Call to make an appointment if that is the case. If any new or worsening symptoms occur, including redness, swelling, please return for re-evaluation. Prescriptions: No Action prednisone 50 mg tablet 50 mg PO DAILY Qty: 4 0RF Referrals: [facility] [place] Infectious Disease [Provider Group]
[2023-08-12] MEDS: Diphth,Pertus(ACell),Tet Adult 0.5 ML SYRINGE IM (13:50)
[2023-08-12 13:52] LABS: MANUAL DIFF FLAG NO
[2023-08-12 13:54] LABS: Basophils Absolute Auto 0.1 X10*3/uL (0.0-0.2); Basophils Percent Auto 1.4 % (0-2); Eosinophils Absolute Auto 1.3 X10*3/uL (0.0-0.4); Eosinophils Percent Auto 15.4 % (0-4); Hematocrit 39.9 % (37.0-47.0); Hemoglobin 13.2 g/dl (12.0-16.0); Imm Gran Abs Auto 0.02 X10*3/uL (0.00-0.03); Imm Gran Pct Auto 0.2 % (0.0-0.4); Lymphocytes Percent Auto 22.6 % (20-40); Mean Corpuscular HGB Conc 33.1 g/dl (31.0-35.0); Mean Corpuscular Hemoglobin 28.1 pg (27.0-33.0); Mean Corpuscular Volume 84.9 fL (80.0-98.0); Mean Platelet Volume 9.7 fL (9.4-12.3); Monocytes Absolute Auto 0.6 X10*3/uL (0.1-1.2); Neutrophils Absolute Auto 4.6 x10*3/uL (2.0-8.3); Neutrophils Percent Auto 53.4 % (45-73); Platelet Count 288 X10*3/uL (160-400); Red Cell Distribution Width 12.6 % (11.0-16.0); White Blood Count 8.6 X10*3/uL (4.8-10.8)
[2023-08-12 14:10] LABS: Alanine Aminotransferase 16 U/L (0-31); Albumin Level 3.9 g/dL (3.5-5.0); Alkaline Phosphatase 62 U/L (39-117); Anion Gap 9 (12-20); Aspartate Amino Transferase 13 U/L (5-31); Bilirubin Direct 0.1 mg/dL (0.0-0.5); Bilirubin Total 0.3 mg/dL (0.0-1.0); Blood Urea Nitrogen 10 mg/dL (9-16); Calcium 10.1 mg/dL (8.4-10.2); Carbon Dioxide 27 mmol/L (22-29); Chloride 109 mmol/L (96-108); Estimated Glomerular Filt Rate > 60; Glucose Random 80 mg/dL (60-115); Potassium 4.6 mmol/L (3.3-5.1); Sodium 140 mmol/L (135-145); Total Protein 7.3 g/dL (6.5-8.0)
[2023-08-12 14:36] LABS: HBS Num1 0.31 mIU/mL (0-7.99); HBc Num1 0.61 S/CO (0.00-0.79); HBsAGNum1 0.32 S/CO (0.00-0.99); HIV AB/AG Nonreactive (Nonreactive); HIV Num 1 0.08 S/CO (0.00-0.99); Hepatitis B Core Antibody Nonreactive (Nonreactive); Hepatitis B Surface Antigen Negative (Negative); ~HepC Num1 0.08 S/CO (0.00-0.79); ~Hepatitis B Surface Antibody NONREACTIVE (Nonreactive)
[2023-08-12 14:43] LABS: Hepatitis C Ab Exposure Source NonReactive (Nonreactive)
== END 2023-08-12 13:57 | disposition home or self-care (01) ==
PROVIDERS: Physician Assistant Medical; Emergency Provider Student in an Organized Health Care Education/Training Program; PCP Internal Medicine
DX: Z77.21 Contact with and (suspected) exposure to potentially hazardous body fluids (principal)
CPT/HCPCS: 36415; 80048; 80076; 85025; 86803; 90471; 90715; 99283; 99284

== ENCOUNTER 2024-08-20 16:21 | Emergency (ER) | payer OTHER, SELFPAY ==
[2024-08-20 16:52] VITALS: BP 115/72; PULSE 93; RESP 18; TEMP 36.6; O2SAT 98; BMI 28.1
--- NOTE | 2024-08-20 17:19 | ED.ASTHMA ---
HPI - Asthma General Chief Complaint: Asthma Stated Complaint: Asthmatic symptoms referred by Pcp Time Seen by Provider: 08/20/24 20:30 Source: patient Mode of arrival: ambulatory Limitations: no limitations History of Present Illness ED Provider: geri SILVERMAN Narrative: Patient is 15 weeks with history of asthma had an asthma attack prior to arrival been sick with nasal congestion for last 2 weeks COVID flu was negative complaining of upper abdominal pain after asthma no vaginal bleed or discharge patient took nebulizing treatment prior to arrival feeling much better saturating 98% at room air Related Data Previous Rx's ?Medication ?Instructions ?Recorded prednisone 50 mg tablet 50 mg PO DAILY #4 tabs 04/05/23 prednisone 20 mg tablet 40 mg (2 x 20 mg) PO DAILY #10 tabs 08/20/24 Allergies Allergy/AdvReac Type Severity Reaction Status Date / Time No Known Allergies Allergy Verified 08/20/24 16:54 [No Known Allergies*] Review of Systems Review of Systems: Yes all other systems are reviewed and are negative PMFSH Past Medical History Medical History Asthma Social History Social History Alcohol intake: former Patient Tobacco Use Status: Never used Tobacco Smoked in Last 30 Days: No Use of substances other than those prescribed or required for medical reasons: No Substance Use Type: Marijuana Advance Directives: No Advance Directives Information Provided: No Do you have a plan to hurt others: No Plan Patient : Yes Physical Exam Vital Signs: Vital Signs: Last Vital Signs Temp 97.8 F 08/20/24 20:28 Pulse 83 08/20/24 20:28 Resp 18 08/20/24 20:28 BP 115/62 08/20/24 20:28 Pulse Ox 100 08/20/24 20:28 O2 Del Method Room Air 08/20/24 20:28 BMI result Body Mass Index 28.1 Appearance: Alert. Oriented X3. No acute distress. ENT: Pharynx normal. Oral Mucosa moist Neck: Normal inspection. Neck supple. CVS: Normal heart rate and rhythm. Pulses normal. Respiratory: No respiratory distress. Equal air entry bilateral, no wheezing/rales/rhonchi prolonged expiration abd: Gravid uterus no significant tenderness heart tone 170 beats per good movement Skin: Skin warm and dry. Normal skin color. Normal skin turgor. Extremities: No lower extremity edema. Neuro: Oriented X 3. Course Course Course Narrative: This is an RME performed by Karey Owen CNP: Additional HPI, ROS, PE not included below will be deferred to primary provider. Patient is a 29-year-old female currently 15 weeks reporting concern for asthma exacerbation. Two weeks with cough, congestion, some improvement with albuterol inhaler. Denies fevers, chills, nausea, vomiting, diarrhea, abdominal pain, lower back pain, symptoms. Call PCP advised to come to ED as she is currently . Exam: No CTA, speaking clear full sentences, no hypoxia no tachypnea. Plan: Viral serologies Medical Decision Making Medical Decision Making [facility] Narrative: Patient with asthma at a attack at home relieved after using nebulizing treatment 15 weeks bedside ultrasound done which showed heart rate of 170 beats per minute good movements Lab Data Labs: Lab Results 08/20/24 Range/Units 17:18 Influenza Type A (PCR) NEGATIVE (Negative) Influenza Type B (PCR) NEGATIVE (Negative) RSV RNA Qual (PCR) NEGATIVE (Negative) SARS-CoV-2 RNA (RT-PCR) NEGATIVE (Negative) Discharge Plan Discharge Clinical Impression: Asthma with acute exacerbation Patient Disposition: Home, Self-Care Instructions: Asthma (ED) Additional Instructions: Continue to use your inhaler and nebulizing treatment every 4-6 hours as needed Prednisone as prescribed Follow the PCP if any concerns Prescriptions: New prednisone 20 mg tablet 40 mg PO DAILY Qty: 10 0RF No Action prednisone 50 mg tablet 50 mg PO DAILY Qty: 4 0RF Print Language: Divehi
[2024-08-20 18:23] LABS: Influenza A PCR NEGATIVE (Negative); Influenza B PCR NEGATIVE (Negative); Resp Syncy Virus RNA Qual PCR NEGATIVE (Negative); SARS COV2 PCR INHOUSE NEGATIVE (Negative)
[2024-08-20 20:28] VITALS: BP 115/62; PULSE 83; RESP 18; TEMP 36.6; O2SAT 100
[2024-08-20] MEDS: predniSONE 20 MG TABLET 40 MG PO (21:30)
[2024-08-20 21:35] VITALS: BP 115/62; PULSE 83; RESP 18; TEMP 36.6; O2SAT 100
== END 2024-08-20 21:36 | disposition home or self-care (01) ==
PROVIDERS: Emergency Provider Internal Medicine; PCP Internal Medicine
DX: J45.901 Unspecified asthma with (acute) exacerbation (principal); R09.81 Nasal congestion; R10.10 Upper abdominal pain, unspecified; Z03.818 Encounter for observation for suspected exposure to other biological agents ruled out
CPT/HCPCS: 0241U; 99283; 99284

== ENCOUNTER 2024-08-31 20:52 | Emergency (ER) | payer OTHER, SELFPAY ==
--- NOTE | 2024-08-31 | ECG_ITS ---
Test Reason : TACHYCARDIA Blood Pressure : / mmHG Vent. Rate : 140 BPM Atrial Rate : 140 BPM P-R Int : 132 ms QRS Dur : 080 ms QT Int : 292 ms P-R-T Axes : 054 010 045 degrees QTc Int : 445 ms Sinus tachycardia Cannot rule out Anterior infarct , age undetermined Abnormal ECG When compared with ECG of 20-JUN-2021 10:22, Vent. rate has increased BY 69 BPM Referred By: Generic ED Physician Electronically Signed By:PRECIOUS AVENDANO
--- NOTE | ~2024-08-31 | XR_ITS ---
EXAMINATION: XR CHEST CLINICAL INFORMATION: SOB COMPARISON: April 05, 2023 TECHNIQUE: Frontal view of the chest was obtained. FINDINGS: No significant abnormality is noted involving the heart, lungs, mediastinum, bony thorax or soft tissues. XR/XR chest 1V IMPRESSION: Unremarkable examination. Electronically signed by: Carlos Miller MD 08/31/2024 11:22 PM [facility] [place]
[2024-08-31 20:53] VITALS: BP 104/71; PULSE 145; RESP 22; TEMP 37; O2SAT 97; BMI 24.4
[2024-08-31 21:13] LABS: Hemoglobin 11.7 g/dl (12.0-16.0); Monocytes Absolute Auto 0.3 X10*3/uL (0.1-1.2); Red Cell Distribution Width 13.1 % (11.0-16.0); SCAN SMEAR FLAG 1
[2024-08-31 21:17] LABS: Basophils Absolute Auto 0.1 X10*3/uL (0.0-0.2); Basophils Percent Auto 0.4 % (0-2); Eosinophils Absolute Auto 0.2 X10*3/uL (0.0-0.4); Eosinophils Percent Auto 0.9 % (0-4); Hematocrit 32.2 % (37.0-47.0); Imm Gran Pct Auto 0.6 % (0.0-0.4); Lymphocytes Absolute Auto 0.6 X10*3/uL (1.2-4.9); Lymphocytes Percent Auto 3.6 % (20-40); MANUAL DIFF FLAG SCAN; Mean Corpuscular HGB Conc 36.3 g/dl (31.0-35.0); Mean Corpuscular Hemoglobin 28.6 pg (27.0-33.0); Mean Corpuscular Volume 78.7 fL (80.0-98.0); Mean Platelet Volume 9.4 fL (9.4-12.3); Monocytes Percent Auto 1.7 % (2-11); Neutrophils Absolute Auto 16.7 x10*3/uL (2.0-8.3); Neutrophils Percent Auto 92.8 % (45-73); Platelet Count 251 X10*3/uL (160-400); Red Blood Count 4.09 X10*6/uL (4.20-5.50)
[2024-08-31 21:25] LABS: Alanine Aminotransferase 17 U/L (0-31); Albumin Level 3.7 g/dL (3.5-5.0); Alkaline Phosphatase 60 U/L (39-117); Anion Gap 10 (12-20); Aspartate Amino Transferase 15 U/L (5-31); Bilirubin Total 0.3 mg/dL (0.0-1.0); Blood Urea Nitrogen 6 mg/dL (9-16); Calcium 8.7 mg/dL (8.4-10.2); Carbon Dioxide 21 mmol/L (22-29); Chloride 106 mmol/L (96-108); Creatinine Clr Calc Pharmacy 113.6; Estimated Glomerular Filt Rate > 60; Glucose Random 178 mg/dL (60-115); Magnesium 1.9 mg/dL (1.6-2.6); Sodium 134 mmol/L (135-145); Total Protein 6.6 g/dL (6.5-8.0)
[2024-08-31 21:38] LABS: SLIDE REVIEW VERIFIED
[2024-08-31 21:48] LABS: Influenza A PCR NEGATIVE (Negative); Influenza B PCR NEGATIVE (Negative); Resp Syncy Virus RNA Qual PCR NEGATIVE (Negative); SARS COV2 PCR INHOUSE NEGATIVE (Negative)
[2024-08-31 22:15] VITALS: BP 113/62; PULSE 121; RESP 16; TEMP 36.4; O2SAT 97
--- NOTE | 2024-08-31 22:36 | ED_ITS ---
HPI - SOB/Dyspnea General Chief Complaint: Dyspnea Stated Complaint: trouble breathing ; 4 months Time Seen by Provider: 08/31/24 22:19 Source: patient Mode of arrival: ambulatory Limitations: no limitations History of Present Illness ED Provider: geri SILVERMAN Narrative: Patient's history of asthma 4 months allergic to dogs apparently giving the bath to the dog started having shortness a breath wheezing to the treatment before coming no feeling much better able to speak full sentences patient is just here last week with similar episode and was given prednisone Related Data Previous Rx's ?Medication ?Instructions ?Recorded prednisone 50 mg tablet 50 mg PO DAILY #4 tabs 04/05/23 prednisone 20 mg tablet 40 mg (2 x 20 mg) PO DAILY #10 tabs 08/20/24 Allergies Allergy/AdvReac Type Severity Reaction Status Date / Time No Known Allergies Allergy Verified 08/31/24 20:56 [No Known Allergies*] Review of Systems 2 Review of Systems: Yes all other systems are reviewed and are negative PMFSH Past Medical History Medical History Asthma Social History Social History Alcohol intake: former Patient Tobacco Use Status: Never used Tobacco Substance Use Type: Marijuana Advance Directives: No Advance Directives Information Provided: No Physical Exam 2 Vital Signs: Vital Signs: Last Vital Signs Temp 97.6 F 08/31/24 22:57 Pulse 121 H 08/31/24 22:57 Resp 16 08/31/24 22:57 BP 113/62 08/31/24 22:57 Pulse Ox 97 08/31/24 22:57 O2 Del Method Room Air 08/31/24 22:57 BMI result Body Mass Index 24.4 Appearance: Alert. Oriented X3. No acute distress. Eyes: No pallor or icterus ENT: Pharynx normal. Oral Mucosa moist Neck: Normal inspection. Neck supple. CVS: Normal heart rate and rhythm. Pulses normal. Respiratory: No respiratory distress. Equal air entry bilateral, prolonged expiration Abdomen: Soft and nontender. Bowel sounds are present, gravid uterus, no CVA tenderness Skin: Skin warm and dry. Normal skin color. Normal skin turgor. Extremities: No lower extremity edema. No calf tenderness Neuro: Oriented X 3. No motor deficit. Medications Administered Discontinued Medications Generic Name Dose Route Start Last Admin Trade Name Ike PRN Reason Stop Dose Admin Dexamethasone 10 mg 08/31/24 22:47 08/31/24 22:56 Dexamethasone 2 Mg Tablet PO 08/31/24 22:48 10 mg ONCE ONE Administration Medical Decision Making Medical Decision Making [facility] Narrative: Patient with asthma attack secondary to exposure to dogs which she is allergic to feeling much better after nebulizing to 2 will give a dose of Decadron discharge patient home Lab Data [facility] Lab Attestation statement: I reviewed the patient's lab results. 08/31/24 21:06 08/31/24 21:06 Labs: Lab Results 08/31/24 Range/Units 21:06 WBC 18.0 H (4.8-10.8) X10*3/uL RBC 4.09 L (4.20-5.50) X10*6/uL Hgb 11.7 L (12.0-16.0) g/dl Hct 32.2 L (37.0-47.0) % MCV 78.7 L (80.0-98.0) fL MCH 28.6 (27.0-33.0) pg MCHC 36.3 H (31.0-35.0) g/dl RDW 13.1 (11.0-16.0) % Plt Count 251 (160-400) X10*3/uL MPV 9.4 (9.4-12.3) fL Immature Gran % (Auto) 0.6 H (0.0-0.4) % Neut % (Auto) 92.8 H (45-73) % Lymph % (Auto) 3.6 L (20-40) % [place] % (Auto) 1.7 L (2-11) % Eos % (Auto) 0.9 (0-4) % Baso % (Auto) 0.4 (0-2) % Lymph # (Auto) 0.6 L (1.2-4.9) X10*3/uL [place] # (Auto) 0.3 (0.1-1.2) X10*3/uL Eos # (Auto) 0.2 (0.0-0.4) X10*3/uL Baso # (Auto) 0.1 (0.0-0.2) X10*3/uL Abs Immat Gran (auto) 0.10 H (0.00-0.03) X10*3/uL Absolute Neuts (auto) 16.7 H (2.0-8.3) x10*3/uL Absolute Nucleated RBC 0.000 (0.0-0.012) X10*3/uL Nucleated RBC % (auto) 0.0 (0.0-0.2) /100WBC Smear Tech's Comments VERIFIED Sodium 134 L (135-145) mmol/L Potassium 3.0 L (3.3-5.1) mmol/L Chloride 106 (96-108) mmol/L Carbon Dioxide 21 L (22-29) mmol/L Anion Gap 10 L (12-20) BUN 6 L (9-16) mg/dL Creatinine 0.69 (0.5-1.4) mg/dL Estim Creat Clear Calc 113.6 Estimated GFR > 60 Random Glucose 178 H (60-115) mg/dL Calcium 8.7 D (8.4-10.2) mg/dL Magnesium 1.9 (1.6-2.6) mg/dL Total Bilirubin 0.3 (0.0-1.0) mg/dL AST 15 (5-31) U/L ALT 17 (0-31) U/L Alkaline Phosphatase 60 (39-117) U/L Total Protein 6.6 (6.5-8.0) g/dL Albumin 3.7 (3.5-5.0) g/dL Influenza Type A (PCR) NEGATIVE (Negative) Influenza Type B (PCR) NEGATIVE (Negative) RSV RNA Qual (PCR) NEGATIVE (Negative) SARS-CoV-2 RNA (RT-PCR) NEGATIVE (Negative) Discharge Plan Discharge Clinical Impression: Asthma with exacerbation Patient Disposition: Home, Self-Care Instructions: Asthma (ED) Additional Instructions: Care and cautions as advised Continue to use inhaler and nebulizing treatment as prescribed Follow with your PCP Prescriptions: No Action prednisone 50 mg tablet 50 mg PO DAILY Qty: 4 0RF prednisone 20 mg tablet 40 mg PO DAILY Qty: 10 0RF Interventions: ED Discharge Assessment Last Done: 08/31/24 22:57 Discharge Date/Time: 08/31/24 22:59 Print Language: German
[2024-08-31] MEDS: dexAMETHasone 2 MG TABLET 10 MG PO (22:56)
[2024-08-31 22:57] VITALS: BP 113/62; PULSE 121; RESP 16; TEMP 36.4; O2SAT 97
== END 2024-08-31 22:59 | disposition home or self-care (01) ==
PROVIDERS: Emergency Provider Internal Medicine; PCP Internal Medicine
DX: O26.892 Other specified pregnancy related conditions, second trimester (principal); J45.901 Unspecified asthma with (acute) exacerbation; R00.0 Tachycardia, unspecified; Z3A.16 16 weeks gestation of pregnancy; Z79.899 Other long term (current) drug therapy; Z03.818 Encounter for observation for suspected exposure to other biological agents ruled out
CPT/HCPCS: 0241U; 71045; 80053; 83735; 85025; 93005; 99283; 99284; J8540

== ENCOUNTER → 2024-08-31 20:52 | Outpatient (BNV) | payer OTHER, SELFPAY | PROVIDERS: Emergency Provider Internal Medicine; PCP Internal Medicine; Visit Provider Internal Medicine | DX: R94.31 Abnormal electrocardiogram [ECG] [EKG] (principal) | CPT/HCPCS: 93010 ==

== ENCOUNTER 2024-12-28 17:33 | Emergency (ER) | payer OTHER, SELFPAY ==
[2024-12-28 17:41] VITALS: BP 138/76; PULSE 151; RESP 20; TEMP 38.1; O2SAT 98; BMI 30.5
--- NOTE | 2024-12-28 17:44 | ED.GENADULT ---
HPI - General Adult General Chief complaint: Upper Respiratory Symptoms Stated complaint: Asthma/?Strep Time Seen by Provider: 12/28/24 18:04 Source: patient Mode of arrival: ambulatory Limitations: no limitations History of Present Illness ED Provider: HPI narrative: Patient is 8 months with history of asthma been having sore throat for last 2 days diagnose strep yesterday in the clinic daughter is positive influenza and strep does have a running nose also today she got dry cough with wheezing tachycardic on arrival and febrile cough is mostly dry Related Data Previous Rx's ?Medication ?Instructions ?Recorded prednisone 50 mg tablet 50 mg PO DAILY #4 tabs 04/05/23 prednisone 20 mg tablet 40 mg (2 x 20 mg) PO DAILY #10 tabs 08/20/24 oseltamivir 75 mg capsule (Tamiflu) 75 mg PO BID 5 days #10 caps 12/28/24 prednisone 20 mg tablet 40 mg (2 x 20 mg) PO DAILY #10 tabs 12/28/24 Allergies Allergy/AdvReac Type Severity Reaction Status Date / Time No Known Allergies Allergy Verified 12/28/24 17:43 [No Known Allergies*] Review of Systems Review of Systems: Yes all other systems are reviewed and are negative [facility] Past Medical History Medical History Asthma Social History Social History Alcohol intake: former Patient Tobacco Use Status: Never used Tobacco Substance Use Type: Marijuana Advance Directives: No Advance Directives Information Provided: No Physical Exam ED Vital Signs: Vital Signs - 24 hr 12/28/24 17:41 12/28/24 17:53 12/28/24 18:53 Temperature 100.5 F H 99.2 F Pulse Rate 151 H 141 H 136 H Respiratory Rate 20 24 H 20 Blood Pressure 138/76 100/36 L Pulse Oximetry 98 96 Oxygen Delivery Method Room Air Room Air 12/28/24 19:37 12/28/24 21:13 12/28/24 21:15 Temperature 98.2 F 98.1 F 98.1 F Pulse Rate 122 H 116 H 116 H Respiratory Rate 19 20 20 Blood Pressure 102/40 L 95/43 L 95/43 L Pulse Oximetry 96 96 96 Oxygen Delivery Method Room Air Room Air Room Air BMI result Body Mass Index 30.5 Appearance: Alert. Oriented X3. No acute distress. Eyes: No pallor or icterus ENT: Pharynx slight erythematous clear rhinorrhea Oral Mucosa moist Neck: Normal inspection. Neck supple. CVS: Tachycardic. Pulses normal. Respiratory: No respiratory distress. Equal air entry bilateral, bilateral wheezing Abdomen: Soft and nontender. Bowel sounds are present, gravid uterus, no CVA tenderness Skin: Skin warm and dry. Normal skin color. Normal skin turgor. Extremities: No lower extremity edema. No calf tenderness Neuro: Oriented X 3. Course Course Course Narrative: This is a rapid medical exam performed by Sarahy Amanda PA-C. The patient is a 29-year-old female who is currently approximately 8 months , who is currently being treated for strep throat on amoxicillin, presents with asthma exacerbation. On exam, the patient was tachypneic and wheezing. We will be ordering a viral panel. She used her inhaler and nebulizer at home prior to arrival, she is quite tachycardic at 1:50 a.m., we are trying to expedite her assessment. Medications Administered Discontinued Medications Generic Name Dose Route Start Last Admin Trade Name Freq PRN Reason Stop Dose Admin Ceftriaxone Sodium 1 gm 12/28/24 18:06 12/28/24 19:38 Ceftriaxone Sodium 1 Gm Vial IVPUSH 12/28/24 18:07 1 gm ONCE ONE Administration Sodium Chloride 1,000 mls @ 999 mls/hr 12/28/24 18:05 12/28/24 19:36 Ns IV 12/28/24 19:05 Infused .Q1H1M ONE Infusion Acetaminophen 1,000 mg in 100 mls @ 400 mls/hr 12/28/24 18:05 12/28/24 19:37 Ofirmev IV 12/28/24 18:19 Infused ONCE ONE Infusion Magnesium Sulfate 2 gm in 50 mls @ 150 mls/hr 12/28/24 18:11 12/28/24 19:36 Magnesium Sulfate/H2o IV 12/28/24 18:30 Infused ONCE ONE Infusion Levalbuterol HCl 2.5 mg 12/28/24 17:52 12/28/24 17:57 Levalbuterol Hcl 1.25 Mg/3 Ml Vial.Neb INHALE 12/28/24 17:53 2.5 mg ONCE ONE Administration Methylprednisolone Sodium Succinate 125 mg 12/28/24 18:11 12/28/24 18:44 Methylprednisolone Sod Succ 125 Mg/2 Ml Vial IVPUSH 12/28/24 18:12 125 mg ONCE ONE Administration Oseltamivir Phosphate 75 mg 12/28/24 19:13 12/28/24 19:38 Oseltamivir Phosphate 75 Mg Capsule PO 12/28/24 19:14 75 mg ONCE ONE Administration Medical Decision Making Medical Decision Making [facility] Narrative: Patient is 8 months with asthma with strep throat and influenza a responded to IV fluids nebulizing treatment and prednisone and magnesium feeling much better at this time patient is also given Rocephin IV white counts are normal patient advised the supportive treatment started on Tamiflu and prednisone 11 discharge patient is saturating 96% at room air heart rate was 116 beats per minute Lab Data [facility] Lab Attestation statement: I reviewed the patient's lab results. 12/28/24 18:13 12/28/24 18:13 Labs: Lab Results 12/28/24 12/28/24 Range/Units 18:13 18:15 WBC 7.3 (4.8-10.8) X10*3/uL RBC 3.95 L (4.20-5.50) X10*6/uL Hgb 11.4 L (12.0-16.0) g/dl Hct 33.2 L (37.0-47.0) % MCV 84.1 (80.0-98.0) fL MCH 28.9 (27.0-33.0) pg MCHC 34.3 (31.0-35.0) g/dl RDW 13.1 (11.0-16.0) % Plt Count 185 D (160-400) X10*3/uL MPV 9.9 (9.4-12.3) fL Immature Gran % (Auto) 1.2 H (0.0-0.4) % Neut % (Auto) 80.3 H (45-73) % Lymph % (Auto) 6.6 L (20-40) % [place] % (Auto) 10.7 (2-11) % Eos % (Auto) 0.7 (0-4) % Baso % (Auto) 0.5 (0-2) % Lymph # (Auto) 0.5 L (1.2-4.9) X10*3/uL [place] # (Auto) 0.8 (0.1-1.2) X10*3/uL Eos # (Auto) 0.1 (0.0-0.4) X10*3/uL Baso # (Auto) 0.0 (0.0-0.2) X10*3/uL Abs Immat Gran (auto) 0.09 H (0.00-0.03) X10*3/uL Absolute Neuts (auto) 5.8 (2.0-8.3) x10*3/uL Absolute Nucleated RBC 0.000 (0.0-0.012) X10*3/uL Nucleated RBC % (auto) 0.0 (0.0-0.2) /100WBC Sodium 135 (135-145) mmol/L Potassium 3.3 (3.3-5.1) mmol/L Chloride 109 H (96-108) mmol/L Carbon Dioxide 19 L (22-29) mmol/L Anion Gap 10 L (12-20) BUN 5 L (9-16) mg/dL Creatinine 0.68 (0.5-1.4) mg/dL Estim Creat Clear Calc 117.3 Estimated GFR > 60 Random Glucose 91 (60-115) mg/dL Lactic Acid 2.0 (0.5-2.0) mmol/L Calcium 8.4 (8.4-10.2) mg/dL Total Bilirubin 0.8 (0.0-1.0) mg/dL AST 28 (5-31) U/L ALT 21 (0-31) U/L Alkaline Phosphatase 107 (39-117) U/L Total Protein 6.1 L (6.5-8.0) g/dL Albumin 3.2 L (3.5-5.0) g/dL Influenza Type A (PCR) POSITIVE A (Negative) Influenza Type B (PCR) NEGATIVE (Negative) RSV RNA Qual (PCR) NEGATIVE (Negative) SARS-CoV-2 RNA (RT-PCR) NEGATIVE (Negative) Discharge Plan Discharge Clinical Impression: Influenza, Asthma, Strep throat Patient Disposition: Home, Self-Care Instructions: Asthma (ED), Strep Throat (DC), Influenza (ED) Additional Instructions: Continue to use your inhaler and nebulizing treatment every 4-6 hours as needed Prednisone as prescribed Continue amoxicillin for strep throat Take Tamiflu for influenza A Drink plenty of fluids Follow with the PCP if not better Prescriptions: New prednisone 20 mg tablet 40 mg PO DAILY Qty: 10 0RF oseltamivir [Tamiflu] 75 mg capsule 75 mg PO BID 5 Days Qty: 10 0RF No Action prednisone 50 mg tablet 50 mg PO DAILY Qty: 4 0RF prednisone 20 mg tablet 40 mg PO DAILY Qty: 10 0RF Interventions: ED Discharge Assessment Last Done: 12/28/24 21:15 Discharge Date/Time: 12/28/24 21:20 Print Language: Sinhala
[2024-12-28 17:53] VITALS: PULSE 141; RESP 24; O2SAT 97
[2024-12-28] MEDS: levalbuterol HCL 1.25 MG/3 ML VIAL.NEB 2.5 MG INHALE (17:57)
[2024-12-28] MEDS: 0.9 % Sodium Chloride 1,000 ML 999 ML IV (18:12)
[2024-12-28] MEDS: Acetaminophen 1,000 MG/100 ML PIGGYBACK 400 MG IV (18:15)
[2024-12-28 18:22] LABS: MANUAL DIFF FLAG NO
[2024-12-28 18:31] LABS: Basophils Percent Auto 0.5 % (0-2); Eosinophils Absolute Auto 0.1 X10*3/uL (0.0-0.4); Eosinophils Percent Auto 0.7 % (0-4); Hematocrit 33.2 % (37.0-47.0); Hemoglobin 11.4 g/dl (12.0-16.0); Imm Gran Abs Auto 0.09 X10*3/uL (0.00-0.03); Imm Gran Pct Auto 1.2 % (0.0-0.4); Lymphocytes Absolute Auto 0.5 X10*3/uL (1.2-4.9); Lymphocytes Percent Auto 6.6 % (20-40); Mean Corpuscular HGB Conc 34.3 g/dl (31.0-35.0); Mean Corpuscular Hemoglobin 28.9 pg (27.0-33.0); Mean Corpuscular Volume 84.1 fL (80.0-98.0); Mean Platelet Volume 9.9 fL (9.4-12.3); Monocytes Absolute Auto 0.8 X10*3/uL (0.1-1.2); Monocytes Percent Auto 10.7 % (2-11); Neutrophils Absolute Auto 5.8 x10*3/uL (2.0-8.3); Neutrophils Percent Auto 80.3 % (45-73); Platelet Count 185 X10*3/uL (160-400); Red Blood Count 3.95 X10*6/uL (4.20-5.50); Red Cell Distribution Width 13.1 % (11.0-16.0); White Blood Count 7.3 X10*3/uL (4.8-10.8)
[2024-12-28 18:37] LABS: Anion Gap 10 (12-20)
[2024-12-28] MEDS: Magnesium Sulfate/H2O 2 GM/50 ML PIGGYBACK IV (18:44)
[2024-12-28] MEDS: methylPREDNISolone Sod Succ 125 MG/2 ML VIAL IVPUSH (18:44)
[2024-12-28 18:45] LABS: Alanine Aminotransferase 21 U/L (0-31); Albumin Level 3.2 g/dL (3.5-5.0); Alkaline Phosphatase 107 U/L (39-117); Aspartate Amino Transferase 28 U/L (5-31); Blood Urea Nitrogen 5 mg/dL (9-16); Calcium 8.4 mg/dL (8.4-10.2); Carbon Dioxide 19 mmol/L (22-29); Chloride 109 mmol/L (96-108); Creatinine Clr Calc Pharmacy 117.3; Estimated Glomerular Filt Rate > 60; Glucose Random 91 mg/dL (60-115); Potassium 3.3 mmol/L (3.3-5.1); Sodium 135 mmol/L (135-145); Total Protein 6.1 g/dL (6.5-8.0)
[2024-12-28 18:53] VITALS: BP 100/36; PULSE 136; RESP 20; TEMP 37.3; O2SAT 96
[2024-12-28 18:55] LABS: Bilirubin Total 0.8 mg/dL (0.0-1.0)
[2024-12-28 19:02] LABS: Influenza A PCR POSITIVE (Negative); Influenza B PCR NEGATIVE (Negative); Resp Syncy Virus RNA Qual PCR NEGATIVE (Negative); SARS COV2 PCR INHOUSE NEGATIVE (Negative)
[2024-12-28 19:37] VITALS: BP 102/40; PULSE 122; RESP 19; TEMP 36.8; O2SAT 96
[2024-12-28] MEDS: Oseltamivir Phosphate 75 MG CAPSULE PO (19:38)
[2024-12-28] MEDS: cefTRIAXone sodium 1 GM VIAL IVPUSH (19:38)
[2024-12-28 21:13] VITALS: BP 95/43; PULSE 116; RESP 20; TEMP 36.7; O2SAT 96
[2024-12-28 21:15] VITALS: BP 95/43; PULSE 116; RESP 20; TEMP 36.7; O2SAT 96
== END 2024-12-28 21:20 | disposition home or self-care (01) ==
PROVIDERS: Physician Assistant Medical; Emergency Provider Internal Medicine; PCP Internal Medicine
DX: J10.1 Influenza due to other identified influenza virus with other respiratory manifestations (principal); J02.0 Streptococcal pharyngitis; O26.893 Other specified pregnancy related conditions, third trimester; R05.9 Cough, unspecified; R00.0 Tachycardia, unspecified; R06.2 Wheezing
CPT/HCPCS: 0241U; 36415; 80053; 83605; 85025; 87040; 94640; 96361; 96374; 96375; 99284; J0131; J0696; J2919; J3475